=== PATIENT | female | born 1980 | race Caucasian/White ===

== ENCOUNTER 2019-10-26 22:40 | Emergency (ER) | payer OTHER ==
[2019-10-27 00:40] LABS: ALT (SGPT) 10 U/L (8-55); AST (SGOT) 13 U/L (5-34); Albumin 3.9 g/dL (3.5-5.0); Alkaline Phosphatase 56 U/L (40-110); Anion Gap 15 mmol/L (10-20); BUN (Urea Nitrogen) 7 mg/dL (7.0-18.7); Bilirubin, Total 0.3 mg/dL (0.2-1.2); Calc. Creatinine Clearance 0 mL/min (70-130); Calcium 9.5 mg/dL (7.8-10.44); Carbon Dioxide 23 mmol/L (22-29); Chloride 103 mmol/L (98-107); Estimated GFR-MDRD 87; Globulin 3.1 g/dL (2.4-3.5); Glucose 112 mg/dL (70-105); Potassium 3.6 mmol/L (3.5-5.1); Sodium 137 mmol/L (136-145)
[2019-10-27] MEDS ORDERED: Metoclopramide HCl 10 MG/2 ML VIAL ONE (00:46)
[2019-10-27 01:06] LABS: Bacteria/HPF 3+ HPF (None Seen); Bilirubin Negative (Negative); Blood, Urine Negative (Negative); Clarity Turbid (Clear); Glucose, Urine (Dipstick) Normal (Negative); Leukocyte Negative Leu/uL (Negative); Nitrite Negative (Negative); Protein, Urine (Dipstick) 30 mg/dL (Neg-Trace); RBC/HPF 0-3 HPF (0-3); Urobilinogen Normal mg/dL (Less than 2)
== END 2019-10-27 01:49 | disposition home or self-care (01) ==
LOC: ERS 22:40
DX: O21.9 Vomiting of pregnancy, unspecified (principal); R11.2 Nausea with vomiting, unspecified; O99.282 Endocrine, nutritional and metabolic diseases complicating pregnancy, second trimester; E03.9 Hypothyroidism, unspecified; O99.342 Other mental disorders complicating pregnancy, second trimester; F32.9 Major depressive disorder, single episode, unspecified; Z79.899 Other long term (current) drug therapy; Z3A.14 14 weeks gestation of pregnancy
CPT/HCPCS: 80053; 81003; 81015; 96365; J2765

== ENCOUNTER 2020-04-17 13:55 | Outpatient (CLI) | payer OTHER ==
[2020-04-18 13:15] LABS: SARS-CoV-2 MS2 Positive; SARS-CoV-2 N Gene Negative; SARS-CoV-2 S Gene Negative; SARS-CoV-2 by NAA Not Detected (NotDetected); SARS-CoV-2 orf1ab Negative
== END 2020-04-17 13:56 | disposition home or self-care (01) ==
LOC: LABBT 13:55
PROVIDERS: ATTEND Obstetrics & Gynecology
DX: Z01.812 Encounter for preprocedural laboratory examination (principal); Z20.828 Contact with and (suspected) exposure to other viral communicable diseases
CPT/HCPCS: 87635; U0003

== ENCOUNTER 2020-04-20 13:43 | Inpatient (IN) | payer OTHER ==
[2020-04-20] MEDS ORDERED: Methylergonovine 0.2 MG/ML VIAL IM PRN (17:48)
[2020-04-20] MEDS ORDERED: NS / Oxytocin 40 units/1000ml 1,000 ML IV PRN (17:48)
[2020-04-20] MEDS ORDERED: Promethazine HCl 25 MG/ML VIAL IM PRN (17:48)
[2020-04-20] MEDS ORDERED: Ibuprofen 800 MG TAB PO PRN (17:48)
[2020-04-20] MEDS ORDERED: Carboprost 250 MCG/ML AMP IM PRN (17:48)
[2020-04-20] MEDS ORDERED: Misoprostol 200 MCG TAB PR PRN (17:48)
[2020-04-20] MEDS ORDERED: Ondansetron PF 4 MG/2 ML Vial IVP PRN (17:48)
[2020-04-20] MEDS ORDERED: Lidocaine 1% (PF) 30 ML VIAL SC PRN (17:48)
[2020-04-20] MEDS ORDERED: Acetaminophen 500 MG TAB PO PRN (17:48)
[2020-04-20] MEDS ORDERED: hydrALAZINE 20 MG/ML VIAL SLOW IVP PRN (17:48)
[2020-04-20] MEDS ORDERED: NS w/ Oxytocin 10 units 500 ML IV SCH (18:00)
[2020-04-20] MEDS ORDERED: Penicillin G Potassium 5 MILL.UNITS in Sodium Chloride 0.9% 100 ML IVPB SCH (18:00)
[2020-04-20] MEDS ORDERED: Penicillin G 2.5 MILL.units 2.5 MILL.UNITS in Premix Bag 1 BAG IVPB SCH (18:00)
[2020-04-20 18:18] VITALS: BMI 36.5
[2020-04-20] MEDS: Misoprostol 100 MCG TAB VAG SCH (18:27)
[2020-04-20 19:01] LABS: Hemoglobin 13.3 g/dL (12.0-16.0); Mean Corpuscular HGB CONC 34.9 g/dL (32.0-36.0); Mean Corpuscular Hemoglobin 30.9 pg (27.0-31.0); Mean Corpuscular Volume 88.6 fL (78.0-98.0); Mean Platelet Volume 8.2 fL (7.4-10.4); Platelet Count 189 thou/uL (130-400); RBC Distribution Width 12.9 % (11.5-14.5); White Blood Cell (WBC) Count 9.8 thou/uL (4.8-10.8)
[2020-04-20 19:34] LABS: HBSAg Index 0.15 S/CO (0-0.99); Hep B Surf Ag Non-Reactive S/CO (NonReactive)
[2020-04-20 19:35] LABS: Syphilis Antibody Nonreactive (Nonreactive); Syphilis Antibody Index 0.03 S/CO (<1.00 Non-Reactive)
[2020-04-20] MEDS: Clindamycin/D5W 900 MG in Premix Bag 1 BAG IVPB SCH (21:59)
[2020-04-20] MEDS ORDERED: Zolpidem Tartrate 5 MG TAB PO SCH (22:00)
[2020-04-21] MEDS: Lactated Ringer's 1,000 ML IV SCH ×2 (04:21→18:31)
[2020-04-21] MEDS: Butorphanol Tartrate 1 MG/ML VIAL SLOW IVP PRN ×2 (04:23→06:57)
[2020-04-21] MEDS: Clindamycin/D5W 900 MG in Premix Bag 1 BAG IVPB SCH ×3 (06:17→18:34)
[2020-04-21] MEDS ORDERED: DISCONTINUE ALL PREVIOUS NARCOTICS FS SCH (07:00)
[2020-04-21] MEDS ORDERED: Bupivacaine 0.5% 20 ML, fentaNYL Citrate/PF 400 MCG in Sodium Chloride 0.9% 72 ML EPIDURAL SCH (07:00)
[2020-04-21] MEDS ORDERED: Acetaminophen 325 MG TAB PO PRN (08:29)
[2020-04-21] MEDS ORDERED: Ondansetron PF 4 MG/2 ML Vial IVP PRN (08:29)
[2020-04-21] MEDS ORDERED: diphenhydrAMINE 50 MG/ML VIAL IVP PRN (08:29)
[2020-04-21] MEDS ORDERED: Lactated Ringer's 500 ML IV PRN (08:29)
[2020-04-21] MEDS ORDERED: ePHEDrine 50 MG/ML VIAL SLOW IVP PRN (08:29)
[2020-04-21] MEDS ORDERED: Naloxone HCl 0.4 mg/ml Vial IVP PRN ×2 (08:29)
[2020-04-21] MEDS ORDERED: Promethazine HCl 25 MG/ML VIAL IM PRN (08:29)
[2020-04-21] MEDS ORDERED: Fentanyl 4 mcg/Bupivacaine 0.1% Cassette 100 ML EPIDURAL SCH (08:30)
[2020-04-21] MEDS ORDERED: Communication Order-Pharmacy FS SCH (08:30)
[2020-04-21] MEDS ORDERED: Lidocaine 1% (PF) 30 ML VIAL ONE (13:14)
[2020-04-21] MEDS ORDERED: NS / Oxytocin 40 units/1000ml 1,000 ML ONE (13:15)
[2020-04-21 14:45] LABS: Actual Bicarbonate (HCO3v) 19 mEq/L (22-28); Base Excess -6.1 mEq/L (-2.0 to +3.0); pH (Cord, venous) 7.34 (7.32-7.43)
[2020-04-21 14:48] LABS: Base Excess (BEa) -6.7 mEq/L (-2.0 to +3.0)
[2020-04-21] MEDS: Misoprostol 100 MCG TAB VAG SCH ×2 (18:30→18:31)
[2020-04-21] MEDS ORDERED: HYDROcodone/Acetaminophen 5/325 mg Tablet PO PRN (18:40)
[2020-04-21] MEDS ORDERED: Lanolin Ointment 7 GM TUBE TOP PRN (18:40)
[2020-04-21] MEDS ORDERED: Benzocaine-Menthol 82.5 ML CAN TOP PRN (18:40)
[2020-04-21] MEDS: Docusate Calcium (SURFAK) 240 MG CAP PO SCH (21:29)
[2020-04-21] MEDS: Ibuprofen 800 MG TAB PO SCH (21:30)
[2020-04-22] MEDS: Ibuprofen 800 MG TAB PO SCH ×3 (04:53→22:18)
[2020-04-22] MEDS: Lactated Ringer's 1,000 ML IV SCH ×2 (05:05→07:22)
[2020-04-22] MEDS: Docusate Calcium (SURFAK) 240 MG CAP PO SCH ×2 (08:19→22:18)
[2020-04-23] MEDS: Ibuprofen 800 MG TAB PO SCH (06:01)
[2020-04-23] MEDS: Lactated Ringer's 1,000 ML IV SCH ×2 (07:30→07:33)
[2020-04-23] MEDS: Docusate Calcium (SURFAK) 240 MG CAP PO SCH (08:41)
[2020-04-23 09:02] VITALS: BP 135/82; TEMP 97.5
== END 2020-04-23 14:00 | disposition home or self-care (01) | DRG 806 ==
LOC: L&D 17:14 → 3SW 04-21 18:07
PROVIDERS: ADMIT Obstetrics & Gynecology; ATTEND Obstetrics & Gynecology
PROC: 3E0P7VZ Introduction of Hormone into Female Reproductive, Via Natural or Artificial Opening (ICD-10-PCS; 2020-04-20)
PROC: 10E0XZZ Delivery of Products of Conception, External Approach (ICD-10-PCS; principal; 2020-04-21)
PROC: 0KQM0ZZ Repair Perineum Muscle, Open Approach (ICD-10-PCS; 2020-04-21)
PROC: 10907ZC Drainage of Amniotic Fluid, Therapeutic from Products of Conception, Via Natural or Artificial Opening (ICD-10-PCS; 2020-04-21)
DX: O24.429 Gestational diabetes mellitus in childbirth, unspecified control (principal); O99.354 Diseases of the nervous system complicating childbirth; Z37.0 Single live birth; Z3A.39 39 weeks gestation of pregnancy; Z20.828 Contact with and (suspected) exposure to other viral communicable diseases; O99.284 Endocrine, nutritional and metabolic diseases complicating childbirth; E03.9 Hypothyroidism, unspecified; O99.344 Other mental disorders complicating childbirth; O99.62 Diseases of the digestive system complicating childbirth; F32.9 Major depressive disorder, single episode, unspecified; F41.9 Anxiety disorder, unspecified; K21.9 Gastro-esophageal reflux disease without esophagitis; G43.909 Migraine, unspecified, not intractable, without status migrainosus; G44.89 Other headache syndrome; O77.0 Labor and delivery complicated by meconium in amniotic fluid; O70.1 Second degree perineal laceration during delivery; Z79.899 Other long term (current) drug therapy; Z79.890 Hormone replacement therapy
CPT/HCPCS: 36415; 51702; 82805; 85027; 86780; 86850; 86900; 86901; 87340; 87635; 88307; J0595; J3010; J3490; U0003

== ENCOUNTER 2021-12-26 13:48 | Emergency (ER) | payer BC ==
[2021-12-26] MEDS ORDERED: Ondansetron PF 4 MG/2 ML Vial ONE ×2 (14:18→16:58)
[2021-12-26 14:40] LABS: #Eosinphils 0.1 thou/uL (0.0-0.7); #Lymphocytes 0.3 thou/uL (1.20-3.40); #Monocytes 0.4 thou/uL (0.11-0.59); %Basophils 0.3 % (0.0-1.0); %Eosinophils 1.1 % (0.0-10.0); %Monocytes 7.5 % (0.0-10.0); %Neutrophils 86.1 % (42.0-75.0); Hemoglobin 13.5 g/dL (12.0-16.0); Mean Corpuscular HGB CONC 34.1 g/dL (32.0-36.0); Mean Corpuscular Hemoglobin 30.2 pg (27.0-31.0); Mean Corpuscular Volume 88.6 fL (78.0-98.0); Mean Platelet Volume 7.4 fL (7.4-10.4); Platelet Count 212 thou/uL (130-400); RBC Distribution Width 11.7 % (11.5-14.5); Red Blood Cell (RBC) Count 4.48 mill/uL (4.20-5.40); White Blood Cell (WBC) Count 5.8 thou/uL (4.8-10.8)
[2021-12-26 15:00] LABS: ALT (SGPT) 18 U/L (8-55); AST (SGOT) 16 U/L (5-34); Albumin 4.5 g/dL (3.5-5.0); Alkaline Phosphatase 69 U/L (40-110); Anion Gap 14 mmol/L (10-20); BUN (Urea Nitrogen) 9 mg/dL (7.0-18.7); Bilirubin, Total 0.3 mg/dL (0.2-1.2); Calc. Creatinine Clearance 0 mL/min (70-130); Calcium 9.4 mg/dL (7.8-10.44); Carbon Dioxide 26 mmol/L (22-29); Chloride 100 mmol/L (98-107); Estimated GFR 86; Globulin 3.1 g/dL (2.4-3.5); Glucose 91 mg/dL (70-105); Potassium 3.7 mmol/L (3.5-5.1); Protein, Total 7.6 g/dL (6.0-8.3); Sodium 136 mmol/L (136-145)
[2021-12-26] MEDS ORDERED: Acetaminophen 500 MG TAB ONE (15:37)
[2021-12-26] MEDS ORDERED: Metoclopramide HCl 10 MG/2 ML VIAL ONE (15:37)
[2021-12-26 16:22] LABS: Bilirubin Negative (Negative); Blood, Urine Negative (Negative); Clarity Clear (Clear); Glucose, Urine (Dipstick) Normal (Negative); Ketone, Urine Negative (Negative); Leukocyte Negative Leu/uL (Negative); Nitrite Negative (Negative); Protein, Urine (Dipstick) Negative (Neg-Trace); Specific Gravity, Urine 1.017 (1.002-1.036); Urobilinogen Normal mg/dL (Less than 2)
[2021-12-26 17:21] LABS: SARS-CoV-2 NAA Rapid Test DETECTED (NotDetected)
[2021-12-26] MEDS ORDERED: Promethazine HCl 12.5 MG in Sodium Chloride 0.9% 50 ML IVPB SCH (17:30)
== END 2021-12-26 19:41 | disposition home or self-care (01) ==
LOC: ERS 13:48
DX: O98.511 Other viral diseases complicating pregnancy, first trimester (principal); U07.1 COVID-19; O21.9 Vomiting of pregnancy, unspecified; O20.0 Threatened abortion; Z3A.01 Less than 8 weeks gestation of pregnancy
CPT/HCPCS: 76856; 80053; 81003; 84702; 85025; 86900; 86901; 87081; 87430; 96361; 96374; 96375; 96376; J2405; J2550; J2765

== ENCOUNTER 2022-02-20 17:40 | Emergency (ER) | payer BC, OTHER | END 2022-02-20 19:24 | disposition home or self-care (01) | LOC: ERS 17:40 | DX: S60.212A Contusion of left wrist, initial encounter (principal); E03.9 Hypothyroidism, unspecified; K21.9 Gastro-esophageal reflux disease without esophagitis; Y04.8XXA Assault by other bodily force, initial encounter ==

== ENCOUNTER 2022-07-01 14:00 | Outpatient (CLI) | payer BC | END 2022-07-01 14:01 | disposition home or self-care (01) | LOC: DTY/OP 14:00 | PROVIDERS: ATTEND Surgery | DX: E66.01 Morbid (severe) obesity due to excess calories (principal); Z68.36 Body mass index [BMI] 36.0-36.9, adult | CPT/HCPCS: 97802 ==

== ENCOUNTER 2022-09-08 10:00 | Inpatient (IN) | payer BC ==
[2022-09-08 10:49] VITALS: BMI 51.3
[2022-09-15] MEDS ORDERED: Heparin 5,000 UNITS/ML VIAL ONE (07:58)
[2022-09-15] MEDS ORDERED: Bupivacaine/Epinephrine 0.25% 30 ML VIAL ONE (08:19)
[2022-09-15] MEDS ORDERED: PROPOFOL 40 ML ONE (08:58)
[2022-09-15] MEDS ORDERED: SUGAMMADEX SODIUM 200 MG/2 ML VIAL ONE (08:58)
[2022-09-15] MEDS ORDERED: fentaNYL PF 100 MCG/2 ML SYRINGE ONE (08:58)
[2022-09-15] MEDS ORDERED: Ketamine In 0.9 % NaCl 50 MG/5 ML SYRINGE ONE (08:58)
[2022-09-15] MEDS ORDERED: Midazolam HCl 2 mg/2 ml Vial ONE (09:00)
[2022-09-15] MEDS ORDERED: Sodium Chloride 0.9% 100 ML ONE (09:09)
[2022-09-15] MEDS ORDERED: CEFAZOLIN 2 GM VIAL ONE (09:09)
[2022-09-15] MEDS ORDERED: PROPOFOL 200 MG/20 ML VIAL ONE (09:19)
[2022-09-15] MEDS ORDERED: Lidocaine 1% PF 5 ML VIAL ONE (09:19)
[2022-09-15] MEDS ORDERED: Ondansetron PF 4 MG/2 ML Vial ONE (09:19)
[2022-09-15] MEDS ORDERED: Dexamethasone 20 MG/5 ML VIAL ONE (09:19)
[2022-09-15] MEDS ORDERED: Ketorolac Tromethamine 30 MG/ML VIAL ONE (09:19)
[2022-09-15] MEDS ORDERED: Glycopyrrolate 0.2 MG/ML 5 ML SYRINGE ONE (09:19)
[2022-09-15] MEDS ORDERED: NEOSTIGMINE 3 MG/3 ML SYR 3 MG/3 ML SYRINGE ONE (09:19)
[2022-09-15] MEDS ORDERED: Rocuronium Bromide 10 MG/ML (10ML VIAL) ONE (09:19)
[2022-09-15] MEDS ORDERED: diphenhydrAMINE 50 MG/ML VIAL IM PRN (10:05)
[2022-09-15] MEDS ORDERED: diphenhydrAMINE 50 MG/ML VIAL IVP PRN ×2 (10:05→16:04)
[2022-09-15] MEDS ORDERED: Naloxone HCl 0.4 mg/ml Vial IV PRN (10:05)
[2022-09-15] MEDS ORDERED: Promethazine HCl 25 MG/ML VIAL IM PRN ×3 (10:05→16:04)
[2022-09-15] MEDS ORDERED: diphenhydrAMINE 25 MG CAP PO PRN (10:05)
[2022-09-15] MEDS ORDERED: Ondansetron HCl/PF 4 MG/2 ML Vial IVP PRN (10:05)
[2022-09-15] MEDS ORDERED: FENTANYL 500 MCG/10 ML VIAL 2,000 MCG in Sodium Chloride 0.9% 60 ML IV PRN (10:05)
[2022-09-15] MEDS ORDERED: Ondansetron PF 4 MG/2 ML Vial IVP PRN (10:05)
[2022-09-15] MEDS ORDERED: Communication Order-Pharmacy FS SCH (10:15)
[2022-09-15] MEDS ORDERED: Fentanyl CADD 100 ML IVPB SCH (10:30)
[2022-09-15] MEDS ORDERED: fentaNYL 50 mcg/mL 1 mL Vial ONE ×2 (11:34→11:51)
[2022-09-15] MEDS ORDERED: Dextrose 50% Abboject 50 ML SYRINGE SLOW IVP PRN (16:04)
[2022-09-15] MEDS ORDERED: Ipratropium/Albuterol 3 ML NEB NEB PRN (16:04)
[2022-09-15] MEDS ORDERED: Dextrose 5% in Water 1,000 ML IV PRN (16:04)
[2022-09-15] MEDS ORDERED: Hydrocodone-Acetamin 15 ML UDCUP PO PRN (16:04)
[2022-09-15] MEDS ORDERED: hydrALAZINE 20 MG/ML VIAL SLOW IVP PRN (16:04)
[2022-09-15] MEDS ORDERED: Acetaminophen 650 MG/20.3 ML UDCUP PO PRN (18:55)
[2022-09-15] MEDS ORDERED: Acetaminophen 650 MG/20.3 ML UDCUP PO SCH (19:00)
[2022-09-15] MEDS: D5 1/2 NS w/20 mEq KCL 1,000 ML IV SCH (19:31)
[2022-09-15] MEDS: Ondansetron PF 4 MG/2 ML Vial IVP PRN (19:35)
[2022-09-16] MEDS: D5 1/2 NS w/20 mEq KCL 1,000 ML IV SCH ×2 (04:24→07:44)
[2022-09-16] MEDS: Ondansetron PF 4 MG/2 ML Vial IVP PRN (04:47)
[2022-09-16] MEDS ORDERED: Levothyroxine 150 MCG TAB PO SCH (06:00)
[2022-09-16 06:17] LABS: #Monocytes 0.5 thou/uL (0.11-0.59); #Neutrophils 4.2 thou/uL (1.40-6.50); %Basophils 0.2 % (0.0-1.0); %Lymphocytes 17.3 % (21.0-51.0); %Monocytes 8.8 % (0.0-10.0); %Neutrophils 73.4 % (42.0-75.0); Hemoglobin 11.3 g/dL (12.0-16.0); Mean Corpuscular HGB CONC 31.4 g/dL (32.0-36.0); Mean Corpuscular Hemoglobin 27.1 pg (27.0-31.0); Mean Corpuscular Volume 86.3 fl (78.0-98.0); Mean Platelet Volume 10.1 fL (7.4-10.4); Platelet Count 224 10x3/uL (130-400); RBC Distribution Width 12.7 % (11.5-14.5); Red Blood Cell (RBC) Count 4.17 mill/uL (4.20-5.40); White Blood Cell (WBC) Count 5.8 10x3/uL (4.8-10.8)
[2022-09-16 06:40] LABS: Anion Gap 11 mmol/L (10-20); BUN (Urea Nitrogen) 7 mg/dL (7.0-18.7); Calc. Creatinine Clearance 161 mL/min (70-130); Calcium 8.7 mg/dL (7.8-10.44); Carbon Dioxide 25 mmol/L (22-29); Chloride 103 mmol/L (98-107); Estimated GFR 101; Glucose 119 mg/dL (70-105); Potassium 3.9 mmol/L (3.5-5.1); Sodium 135 mmol/L (136-145)
[2022-09-16] MEDS ORDERED: Pantoprazole 40 MG VIAL IVP SCH (09:00)
[2022-09-16 12:02] VITALS: TEMP 97.7
[2022-09-16 13:14] VITALS: BP 120/77
== END 2022-09-16 13:14 | disposition home or self-care (01) | DRG 621 ==
LOC: SURG A 09-15 06:56 → SURG B 09-15 12:30
PROVIDERS: ADMIT Surgery; ATTEND Surgery
PROC: 0DB64Z3 Excision of Stomach, Percutaneous Endoscopic Approach, Vertical (ICD-10-PCS; principal; 2022-09-15)
PROC: 8E0W4CZ Robotic Assisted Procedure of Trunk Region, Percutaneous Endoscopic Approach (ICD-10-PCS; 2022-09-15)
DX: E66.01 Morbid (severe) obesity due to excess calories (principal); E03.9 Hypothyroidism, unspecified; F17.210 Nicotine dependence, cigarettes, uncomplicated; F41.9 Anxiety disorder, unspecified; F32.A Depression, unspecified; G43.909 Migraine, unspecified, not intractable, without status migrainosus; Z68.43 Body mass index [BMI] 50.0-59.9, adult; Z88.0 Allergy status to penicillin; Z79.890 Hormone replacement therapy; Z79.899 Other long term (current) drug therapy
CPT/HCPCS: 36415; 80048; 85025; 88307; C9113; J1100; J1644; J1650; J1885; J2250; J2405; J2550; J2704; J3010; J3480; J3490

== ENCOUNTER 2022-09-08 10:01 | Outpatient (CLI) | payer BC ==
[2022-09-08 11:00] LABS: #Eosinphils 0.1 10x3/uL (0.0-0.5); #Monocytes 0.4 10x3/uL (0.0-1.1); #Neutrophils 2.7 10x3/uL (1.5-8.4); %Basophils 0.8 % (0.0-2.0); %Lymphocytes 34.9 % (18.0-47.0); %Monocytes 8.1 % (0.0-10.0); Mean Corpuscular HGB CONC 32.9 g/dL (32.0-36.0); Mean Corpuscular Hemoglobin 27.5 pg (27.0-33.0); Mean Corpuscular Volume 83.7 fl (81.6-98.3); Mean Platelet Volume 9.7 fl (7.4-10.4); Platelet Count 270 10x3/uL (150-450); RBC Distribution Width 12.7 % (11.5-14.5); Red Blood Cell (RBC) Count 4.36 10x6/uL (3.90-5.03); White Blood Cell (WBC) Count 5.1 10x3/uL (3.5-10.5)
[2022-09-08 11:18] LABS: BHCG - Serum Negative (NEGATIVE); Pregs Control Background? CLEAR/WHITE (CLR/WHITE); Pregs Control Bar Appear? YES (CONTROL BAR)
[2022-09-08 11:24] LABS: ALT (SGPT) 17 U/L (8-55); AST (SGOT) 16 U/L (5-34); Albumin 4.1 g/dL (3.5-5.0); Alkaline Phosphatase 57 U/L (40-110); Anion Gap 13 mmol/L (10-20); BUN (Urea Nitrogen) 15 mg/dL (7.0-18.7); Bilirubin, Total 0.3 mg/dL (0.2-1.2); Calc. Creatinine Clearance 0 mL/min (70-130); Calcium 8.8 mg/dL (7.8-10.44); Carbon Dioxide 24 mmol/L (22-29); Chloride 107 mmol/L (98-107); Estimated GFR 96; Globulin 2.4 g/dL (2.4-3.5); Glucose 101 mg/dL (70-105); Potassium 3.9 mmol/L (3.5-5.1); Protein, Total 6.5 g/dL (6.0-8.3); Sodium 140 mmol/L (136-145)
[2022-09-08 13:57] LABS: Hemoglobin A1c 5.1 % (4.0-6.0)
== END 2022-09-08 10:02 | disposition home or self-care (01) ==
LOC: LABBT 10:01
PROVIDERS: ATTEND Surgery
DX: Z01.818 Encounter for other preprocedural examination (principal); E66.01 Morbid (severe) obesity due to excess calories
CPT/HCPCS: 71046; 80053; 83036; 84703; 85025; 93005; 93010